=== PATIENT | female | born 1975 | race Caucasian/White ===

== ENCOUNTER 2023-08-30 08:03 | Outpatient (OUT) | payer SELFPAY ==
--- NOTE | 2023-08-30 08:05 | US_ITS ---
The [address] [address] Patient Name: TATI ADAMS MRN: [id number] date: 1975 Sex: F Assigned Patient Location: US Current Patient Location: US Accession/Order Number: [id number] Exam Date: 08/30/2023 08:05 Report Date: 08/30/2023 09:14 At the request of: LURDES URBINA Procedure: US pelvis w/ transvaginal EXAM: Pelvic ultrasound ultrasound CLINICAL INDICATION: Uterine prolapse. COMPARISON: None TECHNIQUE: Transabdominal and transvaginal grayscale and color Doppler images were obtained. FINDINGS: Uterus: Uterus measures 10.2 x 5.5 x 7.9 cm. No abnormal uterine masses. Endometrium measures 13 mm thickness. IUD along the endometrial canal in anticipated position. Right ovary: Measures 3.0 x 1.4 x 3.3 cm. Normal color flow and Doppler arterial and venous waveforms. No ovarian masses. Left ovary: Measures 4.0 x 2.8 x 2.9 cm. Normal color flow and Doppler arterial and venous waveforms. No ovarian masses. No free fluid in the pelvis. US/US pelvis w/ transvaginal IMPRESSION: 1. No acute sonographic abnormalities in the pelvis. 2. IUD in appropriate position. 3. Endometrium is somewhat thicker than typically seen with an IUD, correlate clinically. Electronically authenticated by: YARED CARDENAS Date: 08/30/2023 09:14
== END 2023-08-30 08:04 | disposition home or self-care (01) ==
LOC: US 08:04
PROVIDERS: Visit Provider Obstetrics & Gynecology
DX: N81.4 Uterovaginal prolapse, unspecified (principal)
CPT/HCPCS: 76830; 76856